=== PATIENT | male | born 1970 | race Caucasian/White ===

== ENCOUNTER 2019-06-14 11:41 | Inpatient (IN) ==
--- NOTE | 2019-06-14 11:51 | Emergency Department Note ---
Disposition Clinical Impression: Suicidal ideation Disposition: Still a Patient Condition: Good Referrals: NONE,PCP [Primary Care Provider] - Time of Disposition: 16:22 General Adult HPI - General Stated complaint: "pink slip" Time Seen by Provider: 06/14/19 11:42 Nursing Notes Reviewed: Yes Vital Signs Reviewed: Yes - Related Data Home Medications Medication Instructions Recorded Confirmed Temazepam [Restoril] 30 mg PO HS 07/01/18 11/10/18 Venlafaxine HCl 100 mg PO DAILY 07/01/18 11/10/18 Apixaban [Eliquis] 5 mg PO DAILY 11/10/18 11/10/18 Allergies Allergy/AdvReac Type Severity Reaction Status Date / Time codeine AdvReac Vomiting Verified 06/14/19 09:32 hydrocodone [From Vicodin] AdvReac Vomiting Verified 06/14/19 09:32 Past Medical History - Past Medical History Medical history: Reports: DVT, hyperlipidemia, hypertension, other Surgical history: Reports: herniorrhaphy Psychiatric history: Reports: anxiety, depression, prior suicide attempt - Social History Smoking Status: Current every day smoker Smokeless Tobacco Status: No Alcohol use: Reports: occasionally Drug use: Reports: IV Drug Use Course Vital Signs Temperature 98.1 F 06/14/19 11:44 Pulse Rate 132 06/14/19 11:44 Respiratory Rate 20 06/14/19 11:44 Blood Pressure 128/92 06/14/19 11:44 O2 Sat by Pulse Oximetry 96 06/14/19 11:44 Temperature 98.1 F 06/14/19 11:44 Pulse Rate 132 06/14/19 11:44 Respiratory Rate 20 06/14/19 11:44 Blood Pressure 128/92 06/14/19 11:44 O2 Sat by Pulse Oximetry 96 06/14/19 11:44 Oxygen Delivery Oxygen Delivery Room Air Medical Decision Making - MDM Narrative Medical decision making narrative: 1343 hrs., [facility] is evaluating the patient at this time. I also spoke with social group worker since he is homeless. 1505 hrs. [facility] has finished their evaluation they feel that he needs stool diagnosis placement so he will be a hold here in the ER until placement can be found. 1618 hrs.: [facility] has decided they are going to admit the patient here; 72 hour hold form is in place. - Lab Data Result diagrams: 06/14/19 11:54 06/14/19 11:54 Lab Results 06/14/19 06/14/19 06/14/19 Range/Units 11:54 11:54 11:54 WBC 8.7 (4.3-11.1) K/mcL RBC 5.21 (4.19-5.50) M/mcL Hgb 15.8 (12.9-16.9) g/dL Hct 46.6 (37.5-50.1) % MCV 89.4 (83.0-100.0) fL MCH 30.3 (28.0-33.3) pg MCHC 33.9 (31.6-35.5) g/dL RDW 13.8 (11.5-14.5) % Plt Count 242 (140-400) K/mcL MPV 10.8 (9.4-12.4) fL Immature Gran % 0.7 (0-4) % Seg Neutrophils % 68.8 % Lymphocytes % 19.6 % Monocytes % 9.6 % Eosinophils % 0.8 % Basophils % 0.5 % Neutrophils # 6.0 (1.6-8.9) K/mcL Lymphocytes # 1.7 (0.6-4.6) K/mcL Monocytes # 0.8 (0.0-1.3) K/mcL Eosinophils # 0.1 (0.0-0.6) K/mcL Basophils # 0.0 (0.0-0.2) K/mcL Sodium 141 (136-145) mEq/L Potassium 3.6 (3.5-5.1) mEq/L Chloride 105 (98-107) mEq/L Carbon Dioxide 26 (23-29) mEq/L BUN 16 (6-20) mg/dL Creatinine 0.86 (0.70-1.30) mg/dL Est GFR ( Amer) > 60 (> 60) Est GFR (Non-Af Amer) > 60 (> 60) BUN/Creatinine Ratio 19 (6-26) Glucose 94 (70-105) mg/dL Calculated Osmolality 293 (280-300) Calcium 9.7 (8.6-10.3) mg/dL Total Bilirubin 1.1 H (0.3-1.0) mg/dL Direct Bilirubin 0.2 (0.0-0.2) mg/dL Indirect Bilirubin 0.9 (0.0-1.2) mg/dL AST 55 H (13-39) Units/L ALT 40 (7-52) Units/L Alkaline Phosphatase 92 (34-104) Units/L Serum Total Protein 7.9 (6.4-8.9) g/dL Albumin 4.9 (3.5-5.7) g/dL Globulin 3.0 (2.4-3.5) g/dL Albumin/Globulin Ratio 1.6 (1.1-2.2) TSH 2.232 (0.340-5.600) mcIU/mL Urine Color (Yellow) Urine Clarity (Clear) Urine pH (5.0-8.0) pH Units Ur Specific [place] (1.010-1.025) Urine Protein (Neg-Trace) mg/dL Urine Glucose (UA) (Normal) mg/dL Urine Ketones (Negative) mg/dL Urine Blood (Negative) Urine Nitrite (Negative) Urine Bilirubin (Negative) Urine Urobilinogen (Normal) mg/dL Ur Leukocyte Esterase (Negative) Urine Microscopic RBC (0-3) per hpf Urine Microscopic WBC (0-3) per hpf Ur Squamous Epith Cells (None-Few) per lpf Urine Bacteria (None-Few) per hpf Hyaline Casts (None-Few) per lpf Salicylates < 2.5 L (15.0-30.0) mg/dL Urine Opiates Screen (Iivovx=650) ng/mL Ur Buprenorphine Scrn (Cutoff=5) ng/mL Acetaminophen < 10 L (10-20) mcg/mL Ur Barbiturates Screen (Ywgune=000) ng/mL Ur Phencyclidine Scrn (Cutoff=25) ng/mL Ur Amphetamines Screen (Xvkypt=8185) ng/mL U Benzodiazepines Scrn (Yfjcnr=693) ng/mL Urine Cocaine Screen (Cutoff= 300) ng/mL U Marijuana (THC) Screen (Cutoff = 50) ng/mL Ur Drug Screen Interp Ethyl Alcohol < 10 (Less than 10) mg/dL 06/14/19 06/14/19 Range/Units 12:38 12:38 WBC (4.3-11.1) K/mcL RBC (4.19-5.50) M/mcL Hgb (12.9-16.9) g/dL Hct (37.5-50.1) % MCV (83.0-100.0) fL MCH (28.0-33.3) pg MCHC (31.6-35.5) g/dL RDW (11.5-14.5) % Plt Count (140-400) K/mcL MPV (9.4-12.4) fL Immature Gran % (0-4) % Seg Neutrophils % % Lymphocytes % % Monocytes % % Eosinophils % % Basophils % % Neutrophils # (1.6-8.9) K/mcL Lymphocytes # (0.6-4.6) K/mcL Monocytes # (0.0-1.3) K/mcL Eosinophils # (0.0-0.6) K/mcL Basophils # (0.0-0.2) K/mcL Sodium (136-145) mEq/L Potassium (3.5-5.1) mEq/L Chloride (98-107) mEq/L Carbon Dioxide (23-29) mEq/L BUN (6-20) mg/dL Creatinine (0.70-1.30) mg/dL Est GFR ( Amer) (> 60) Est GFR (Non-Af Amer) (> 60) BUN/Creatinine Ratio (6-26) Glucose (70-105) mg/dL Calculated Osmolality (280-300) Calcium (8.6-10.3) mg/dL Total Bilirubin (0.3-1.0) mg/dL Direct Bilirubin (0.0-0.2) mg/dL Indirect Bilirubin (0.0-1.2) mg/dL AST (13-39) Units/L ALT (7-52) Units/L Alkaline Phosphatase (34-104) Units/L Serum Total Protein (6.4-8.9) g/dL Albumin (3.5-5.7) g/dL Globulin (2.4-3.5) g/dL Albumin/Globulin Ratio (1.1-2.2) TSH (0.340-5.600) mcIU/mL Urine Color Dark Yellow (Yellow) Urine Clarity Clear (Clear) Urine pH 5.5 (5.0-8.0) pH Units Ur Specific [place] > 1.030 H (1.010-1.025) Urine Protein 100 H (Neg-Trace) mg/dL Urine Glucose (UA) Normal (Normal) mg/dL Urine Ketones 15 H (Negative) mg/dL Urine Blood Trace H (Negative) Urine Nitrite Negative (Negative) Urine Bilirubin Small H (Negative) Urine Urobilinogen Normal (Normal) mg/dL Ur Leukocyte Esterase Negative (Negative) Urine Microscopic RBC 5-15 H (0-3) per hpf Urine Microscopic WBC 3-5 H (0-3) per hpf Ur Squamous Epith Cells Many H (None-Few) per lpf Urine Bacteria None Seen (None-Few) per hpf Hyaline Casts Few (None-Few) per lpf Salicylates (15.0-30.0) mg/dL Urine Opiates Screen Negative (Lmklrk=125) ng/mL Ur Buprenorphine Scrn Negative (Cutoff=5) ng/mL Acetaminophen (10-20) mcg/mL Ur Barbiturates Screen Negative (Enqgoy=523) ng/mL Ur Phencyclidine Scrn Negative (Cutoff=25) ng/mL Ur Amphetamines Screen Positive H (Xikiwg=1377) ng/mL U Benzodiazepines Scrn Negative (Zaodtx=032) ng/mL Urine Cocaine Screen Negative (Cutoff= 300) ng/mL U Marijuana (THC) Screen Negative (Cutoff = 50) ng/mL Ur Drug Screen Interp See Below Ethyl Alcohol (Less than 10) mg/dL Attestation Statement - Attestation Attestation: This documentation is done with the assistance of Dragon dictation. Despite efforts made to ensure accuracy, there may be inaccuracies in data control clerk or spelling and typographical errors. I examined this patient and my medical decision-making was reviewed with the Resident Physician. I agree with the documented findings, disposition and treatment plan as described except to the extent set forth below. Patient was seen and evaluated by Dr. Cuevas I agree with their evaluation and management plan, I supervised care the patient's stay. Patient is transferred from an outside hospital due to hallucinations with psychiatric features. He denies homicidal or suicidal ideations be tells us thought about suicide. He was recently homeless is been living in his car. They did not draw any blood at the other hospitals were out all blood here sitter then have one a see him. He is in agreement with plan. I reviewed the residents documentation and agree with the residents assessment and plan of care. I have personally had face to face time with the patient. (Brief History, Brief Exam, and MDM) I personally supervised and was present for the saldana/critical portions of the following procedures completed by the resident: EKG was interpreted by the resident under my supervision, I agree with their interpretation.
--- NOTE | 2019-06-14 11:54 | Emergency Department Note ---
Disposition Clinical Impression: Suicidal ideation Disposition: Still a Patient Condition: Good Referrals: NONE,PCP [Primary Care Provider] - Time of Disposition: 15:02 General Adult HPI - General Stated complaint: "pink slip" Time Seen by Provider: 06/14/19 11:42 Source: patient Mode of arrival: EMS Limitations: no limitations Nursing Notes Reviewed: Yes Vital Signs Reviewed: Yes - History of Present Illness HPI Narrative: 49-year-old male with a past medical history of hypertension and depression for which she was taking medication, however stopped taking all of his medications a proximally 1 week ago. He states that he has been having some relationship troubles with his , he states that they got a divorce but then had recently decided to reconcile. He then states that he in his decided that they should not be together, she kicked him out of the home, he has been living in his car. Patient states he has not eaten anything in 2 days, he has not had a shower, he states that about 4 or 5 months ago he tried heroin for the first time and his plan to end his life was to take an overdose of heroin. Patient also reports that he had used methamphetamine approximately 4-5 days ago, and reports that he has been seeing people who are not there over the last several days. Patient is upset that he feels like he looked like an idiot at work. Patient is tearful on initial examination, and will not make eye contact. - Related Data Home Medications Medication Instructions Recorded Confirmed Temazepam [Restoril] 30 mg PO HS 07/01/18 11/10/18 Venlafaxine HCl 100 mg PO DAILY 07/01/18 11/10/18 Apixaban [Eliquis] 5 mg PO DAILY 11/10/18 11/10/18 Allergies Allergy/AdvReac Type Severity Reaction Status Date / Time codeine AdvReac Vomiting Verified 06/14/19 09:32 hydrocodone [From Vicodin] AdvReac Vomiting Verified 06/14/19 09:32 Review of Systems: In addition to that documented in the HPI above, the additional ROS was obtained: Constitutional: Denies fevers or chills Eyes: Denies vision changes ENMT: Denies sore throat CV: Denies chest pain Resp: Denies SOB GI: Denies vomiting or diarrhea : Denies painful urination MSK: Denies recent trauma Skin: Denies new rashes Neuro: Denies new numbness or tingling or weakness Past Medical History - Past Medical History Attestation: Yes The following information was validated with the patient. Medical history: Reports: DVT, hyperlipidemia, hypertension, other Surgical history: Reports: herniorrhaphy Psychiatric history: Reports: anxiety, depression, prior suicide attempt - Social History Smoking Status: Current every day smoker Smokeless Tobacco Status: No Alcohol use: Reports: occasionally Drug use: Reports: IV Drug Use Physical Exam General:No acute distress. Tearful. Anxious. Well developed, well nourished. Disheveled, clothes are dirty. Head: atraumatic, normocephalic. ENT: No conjunctival injection, no scleral icterus. PERRLA. EOMI. Oropharynx non- erythematous. mucous membranes moist. Neuro: No focal deficits, no speech deficit, no facial droop, mentating well. BUE/BLE Str 5/5. Pulm: Lungs CTAB A/P. No wheezes, rales, ronchi. Cardio: RRR no m/r/g. Chest not tender to palpation. Abd: Soft, non-distended. Normoactive bowel sounds. Non-tender to palpation. No guarding. Non rigid. Extremities: Radial pulses 2+ christos, dorsalis pedis/posterior tibialis 2+ christos. No LE edema. No cyanosis, clubbing. Skin: warm, dry, intact. No rashes. Psych: Tearful. Flat affect. Answers questions appropriately. Cooperative with exam. Course Vital Signs Temperature 98.1 F 06/14/19 11:44 Pulse Rate 132 06/14/19 11:44 Respiratory Rate 06/14/19 11:44 Blood Pressure 128/92 06/14/19 11:44 O2 Sat by Pulse Oximetry 96 06/14/19 11:44 Temperature 98.1 F 06/14/19 11:44 Pulse Rate 132 06/14/19 11:44 Respiratory Rate 06/14/19 11:44 Blood Pressure 128/92 06/14/19 11:44 O2 Sat by Pulse Oximetry 96 06/14/19 11:44 Oxygen Delivery Oxygen Delivery Room Air Medical Decision Making - MDM Narrative Medical decision making narrative: 1156: Patient was transferred from an outside medical facility where they did not draw labs or tests his urine, patient will have his labs drawn, urine will be tested. Once that results [facility] will be called for bedside consult. [place] slip has been filled out and is placed on the chart. 1310: Diana from [facility] made aware of patient. 1500: Farhat from [facility] states that the patient will require dual diagnosis placement. They will call and find him a place. This may take several hours up to several days. Will place patient on psych hold and keep him 1 to 1 with sitter. Pt will be kept comfortable. - Medical Records Medical records reviewed: Yes I reviewed the patient's medical records. - Lab Data Lab results reviewed: Yes I reviewed the patient's lab results. Result diagrams: 06/14/19 11:54 06/14/19 11:54 Lab Results 06/14/19 06/14/19 06/14/19 Range/Units 11:54 11:54 11:54 WBC 8.7 (4.3-11.1) K/mcL RBC 5.21 (4.19-5.50) M/mcL Hgb 15.8 (12.9-16.9) g/dL Hct 46.6 (37.5-50.1) % MCV 89.4 (83.0-100.0) fL MCH 30.3 (28.0-33.3) pg MCHC 33.9 (31.6-35.5) g/dL RDW 13.8 (11.5-14.5) % Plt Count 242 (140-400) K/mcL MPV 10.8 (9.4-12.4) fL Immature Gran % 0.7 (0-4) % Seg Neutrophils % 68.8 % Lymphocytes % 19.6 % Monocytes % 9.6 % Eosinophils % 0.8 % Basophils % 0.5 % Neutrophils # 6.0 (1.6-8.9) K/mcL Lymphocytes # 1.7 (0.6-4.6) K/mcL Monocytes # 0.8 (0.0-1.3) K/mcL Eosinophils # 0.1 (0.0-0.6) K/mcL Basophils # 0.0 (0.0-0.2) K/mcL Sodium 141 (136-145) mEq/L Potassium 3.6 (3.5-5.1) mEq/L Chloride 105 (98-107) mEq/L Carbon Dioxide 26 (23-29) mEq/L BUN 16 (6-20) mg/dL Creatinine 0.86 (0.70-1.30) mg/dL Est GFR ( Amer) > 60 (> 60) Est GFR (Non-Af Amer) > 60 (> 60) BUN/Creatinine Ratio 19 (6-26) Glucose 94 (70-105) mg/dL Calculated Osmolality 293 (280-300) Calcium 9.7 (8.6-10.3) mg/dL Total Bilirubin 1.1 H (0.3-1.0) mg/dL Direct Bilirubin 0.2 (0.0-0.2) mg/dL Indirect Bilirubin 0.9 (0.0-1.2) mg/dL AST 55 H (13-39) Units/L ALT 40 (7-52) Units/L Alkaline Phosphatase 92 (34-104) Units/L Serum Total Protein 7.9 (6.4-8.9) g/dL Albumin 4.9 (3.5-5.7) g/dL Globulin 3.0 (2.4-3.5) g/dL Albumin/Globulin Ratio 1.6 (1.1-2.2) TSH 2.232 (0.340-5.600) mcIU/mL Urine Color (Yellow) Urine Clarity (Clear) Urine pH (5.0-8.0) pH Units Ur Specific [place] (1.010-1.025) Urine Protein (Neg-Trace) mg/dL Urine Glucose (UA) (Normal) mg/dL Urine Ketones (Negative) mg/dL Urine Blood (Negative) Urine Nitrite (Negative) Urine Bilirubin (Negative) Urine Urobilinogen (Normal) mg/dL Ur Leukocyte Esterase (Negative) Urine Microscopic RBC (0-3) per hpf Urine Microscopic WBC (0-3) per hpf Ur Squamous Epith Cells (None-Few) per lpf Urine Bacteria (None-Few) per hpf Hyaline Casts (None-Few) per lpf Salicylates < 2.5 L (15.0-30.0) mg/dL Urine Opiates Screen (Angdvk=397) ng/mL Ur Buprenorphine Scrn (Cutoff=5) ng/mL Acetaminophen < 10 L (10-20) mcg/mL Ur Barbiturates Screen (Dueadw=651) ng/mL Ur Phencyclidine Scrn (Cutoff=25) ng/mL Ur Amphetamines Screen (Tlvfhq=2807) ng/mL U Benzodiazepines Scrn (Rrduoi=100) ng/mL Urine Cocaine Screen (Cutoff= 300) ng/mL U Marijuana (THC) Screen (Cutoff = 50) ng/mL Ur Drug Screen Interp Ethyl Alcohol < 10 (Less than 10) mg/dL 06/14/19 06/14/19 Range/Units 12:38 12:38 WBC (4.3-11.1) K/mcL RBC (4.19-5.50) M/mcL Hgb (12.9-16.9) g/dL Hct (37.5-50.1) % MCV (83.0-100.0) fL MCH (28.0-33.3) pg MCHC (31.6-35.5) g/dL RDW (11.5-14.5) % Plt Count (140-400) K/mcL MPV (9.4-12.4) fL Immature Gran % (0-4) % Seg Neutrophils % % Lymphocytes % % Monocytes % % Eosinophils % % Basophils % % Neutrophils # (1.6-8.9) K/mcL Lymphocytes # (0.6-4.6) K/mcL Monocytes # (0.0-1.3) K/mcL Eosinophils # (0.0-0.6) K/mcL Basophils # (0.0-0.2) K/mcL Sodium (136-145) mEq/L Potassium (3.5-5.1) mEq/L Chloride (98-107) mEq/L Carbon Dioxide (23-29) mEq/L BUN (6-20) mg/dL Creatinine (0.70-1.30) mg/dL Est GFR ( Amer) (> 60) Est GFR (Non-Af Amer) (> 60) BUN/Creatinine Ratio (6-26) Glucose (70-105) mg/dL Calculated Osmolality (280-300) Calcium (8.6-10.3) mg/dL Total Bilirubin (0.3-1.0) mg/dL Direct Bilirubin (0.0-0.2) mg/dL Indirect Bilirubin (0.0-1.2) mg/dL AST (13-39) Units/L ALT (7-52) Units/L Alkaline Phosphatase (34-104) Units/L Serum Total Protein (6.4-8.9) g/dL Albumin (3.5-5.7) g/dL Globulin (2.4-3.5) g/dL Albumin/Globulin Ratio (1.1-2.2) TSH (0.340-5.600) mcIU/mL Urine Color Dark Yellow (Yellow) Urine Clarity Clear (Clear) Urine pH 5.5 (5.0-8.0) pH Units Ur Specific [place] > 1.030 H (1.010-1.025) Urine Protein 100 H (Neg-Trace) mg/dL Urine Glucose (UA) Normal (Normal) mg/dL Urine Ketones 15 H (Negative) mg/dL Urine Blood Trace H (Negative) Urine Nitrite Negative (Negative) Urine Bilirubin Small H (Negative) Urine Urobilinogen Normal (Normal) mg/dL Ur Leukocyte Esterase Negative (Negative) Urine Microscopic RBC 5-15 H (0-3) per hpf Urine Microscopic WBC 3-5 H (0-3) per hpf Ur Squamous Epith Cells Many H (None-Few) per lpf Urine Bacteria None Seen (None-Few) per hpf Hyaline Casts Few (None-Few) per lpf Salicylates (15.0-30.0) mg/dL Urine Opiates Screen Negative (Oknrlv=934) ng/mL Ur Buprenorphine Scrn Negative (Cutoff=5) ng/mL Acetaminophen (10-20) mcg/mL Ur Barbiturates Screen Negative (Vzuwwc=951) ng/mL Ur Phencyclidine Scrn Negative (Cutoff=25) ng/mL Ur Amphetamines Screen Positive H (Gelkar=6378) ng/mL U Benzodiazepines Scrn Negative (Thpdxg=431) ng/mL Urine Cocaine Screen Negative (Cutoff= 300) ng/mL U Marijuana (THC) Screen Negative (Cutoff = 50) ng/mL Ur Drug Screen Interp See Below Ethyl Alcohol (Less than 10) mg/dL
[2019-06-14 12:11] LABS: Basophils % 0.5 %; Eosinophils # 0.1 K/mcL (0.0-0.6); Eosinophils % 0.8 %; Hematocrit 46.6 % (37.5-50.1); Hemoglobin 15.8 g/dL (12.9-16.9); Immature Granulocytes % 0.7 % (0-4); Lymphocytes # 1.7 K/mcL (0.6-4.6); Lymphocytes % 19.6 %; Mean Corpuscular HGB Conc 33.9 g/dL (31.6-35.5); Mean Corpuscular Hemoglobin 30.3 pg (28.0-33.3); Mean Corpuscular Volume 89.4 fL (83.0-100.0); Mean Platelet Volume 10.8 fL (9.4-12.4); Monocytes # 0.8 K/mcL (0.0-1.3); Monocytes % 9.6 %; Platelet Count 242 K/mcL (140-400); Red Blood Count 5.21 M/mcL (4.19-5.50); Red Cell Distribution Width 13.8 % (11.5-14.5); Segmented Neutrophils % 68.8 %; White Blood Count 8.7 K/mcL (4.3-11.1)
[2019-06-14 12:30] LABS: Acetaminophen < 10 mcg/mL (10-20); BUN/Creatinine Ratio 19 (6-26); Blood Urea Nitrogen 16 mg/dL (6-20); Calcium 9.7 mg/dL (8.6-10.3); Carbon Dioxide 26 mEq/L (23-29); Chloride 105 mEq/L (98-107); Ethanol < 10 mg/dL (Less than 10); Glucose 94 mg/dL (70-105); Osmolality,Calculated 293 (280-300); Potassium 3.6 mEq/L (3.5-5.1); Salicylate < 2.5 mg/dL (15.0-30.0); Sodium 141 mEq/L (136-145); eGFR For African Americans > 60 (> 60); eGFR For Non-African Americans > 60 (> 60)
[2019-06-14 12:33] LABS: Albumin 4.9 g/dL (3.5-5.7); Albumin/Globulin Ratio 1.6 (1.1-2.2); Bilirubin,Direct 0.2 mg/dL (0.0-0.2); Bilirubin,Indirect 0.9 mg/dL (0.0-1.2); Bilirubin,Total 1.1 mg/dL (0.3-1.0); Total Protein 7.9 g/dL (6.4-8.9)
[2019-06-14 12:45] LABS: Thyroid Stimulating Hormone 2.232 mcIU/mL (0.340-5.600)
[2019-06-14 12:48] LABS: Bilirubin,Urine Small (Negative); Blood,Urine Trace (Negative); Clarity,Urine Clear (Clear); Color,Urine Dark Yellow (Yellow); Glucose,Urine (UA) Normal (Normal); Ketones,Urine 15 mg/dL (Negative); Leukocyte Esterase,Urine Negative (Negative); Nitrite,Urine Negative (Negative); PH,Urine 5.5 pH Units (5.0-8.0); Protein,Urine 100 mg/dL (Neg-Trace); Specific Gravity,Urine > 1.030 (1.010-1.025); Urobilinogen,Urine Normal (Normal)
[2019-06-14 12:50] LABS: Bacteria,Urine None Seen per hpf (None-Few); Hyaline Casts,Urine Few per lpf (None-Few); Squamous Epithelial Cell,Urine Many per lpf (None-Few)
[2019-06-14 13:06] LABS: Amphetamine Screen,Urine Positive ng/mL (Cutoff=1000); Barbiturate Screen,Urine Negative ng/mL (Cutoff=200); Benzodiazepines Screen,Urine Negative ng/mL (Cutoff=200); Cannabinoid Screen,Urine Negative ng/mL (Cutoff = 50); Cocaine Screen,Urine Negative ng/mL (Cutoff= 300); Opiate Screen,Urine Negative ng/mL (Cutoff=300); Phencyclidine Screen,Urine Negative ng/mL (Cutoff=25)
[2019-06-14] MEDS ORDERED: Mag Hydrox/Al Hydrox/Simeth 30 ML UDC PO PRN (16:50)
[2019-06-14] MEDS ORDERED: traZODone 50 MG TABLET PO PRN (16:50)
[2019-06-14] MEDS ORDERED: *HR* LORazepam 1 MG TABLET PO PRN (16:50)
[2019-06-14] MEDS ORDERED: Haloperidol Lactate 5 MG/ML VIAL IM PRN (16:50)
[2019-06-14] MEDS ORDERED: MOM Conc 10 ML UD.LIQ PO PRN (16:50)
[2019-06-14] MEDS ORDERED: *HR* LORazepam 2 MG/ML VIAL IM PRN (16:50)
[2019-06-14] MEDS: Nicotine 21 MG PATCH.TD24 TD SCH (22:48)
[2019-06-15] MEDS: Nicotine 21 MG PATCH.TD24 TD SCH (09:33)
--- NOTE | 2019-06-15 09:35 | Psychiatry History & Physical ---
Date of Encounter: 06/15/19 Time of Encounter: 09:35 History of Present Illness Medicare Admission Attestation: For traditional Medicare patients the provided hospital inpatient services are reasonable and necessary and in the case of services not specified as inpatient-only under 42 CFR 419.22 (n), that they are appropriately provided as inpatient services in accordance 42 CFR 412.3. For Critical Access Hospital the patient may reasonably be expected to be discharged or transferred to a hospital within 96 hours after admission to the Critical Access Hospital. History of Present Illness: Mr. Hoyt is a 49 year old male Past Med Surg Social Fam HX - Past Medical History Medical history: DVT, hyperlipidemia, hypertension, other - Past Surgical History Surgical History: herniorrhaphy - Social History Smoking Status: Current every day smoker Smokeless Tobacco Status: Yes Alcohol use: occasionally Drug use: IV Drug Use Medications & Allergies Dicyclomine [Bentyl] 10 mg PO TID 06/15/19 [History] Simvastatin [Zocor] 10 mg PO QPM 06/15/19 [History] Venlafaxine [Effexor] 75 mg PO DAILY 06/15/19 [History] Allergy/AdvReac Type Severity Reaction Status Date / Time codeine AdvReac Vomiting Verified 06/14/19 09:32 hydrocodone [From Vicodin] AdvReac Vomiting Verified 06/14/19 09:32 Exam - Constitutional Vitals: Temp Pulse Resp BP Pulse Ox 97.8 F 109 20 106/79 95 06/14/19 21:00 06/14/19 21:00 06/14/19 21:00 06/14/19 21:00 06/14/19 21:00 Results - Drug Levels and Toxicology Drug Levels and Toxicology: Drug Levels and Toxicity 06/14/19 06/14/19 11:54 12:38 Urine Opiates Screen Negative Acetaminophen < 10 L Ur Barbiturates Screen Negative Ur Phencyclidine Scrn Negative Ur Amphetamines Screen Positive H U Benzodiazepines Scrn Negative Urine Cocaine Screen Negative U Marijuana (THC) Screen Negative Ethyl Alcohol < 10 - Labs Labs: Laboratory Last Values WBC 8.7 K/mcL (4.3-11.1) 06/14/19 11:54 RBC 5.21 M/mcL (4.19-5.50) 06/14/19 11:54 Hgb 15.8 g/dL (12.9-16.9) 06/14/19 11:54 Hct 46.6 % (37.5-50.1) 06/14/19 11:54 MCV 89.4 fL (83.0-100.0) 06/14/19 11:54 MCH 30.3 pg (28.0-33.3) 06/14/19 11:54 MCHC 33.9 g/dL (31.6-35.5) 06/14/19 11:54 RDW 13.8 % (11.5-14.5) 06/14/19 11:54 Plt Count 242 K/mcL (140-400) 06/14/19 11:54 MPV 10.8 fL (9.4-12.4) 06/14/19 11:54 Immature Gran % 0.7 % (0-4) 06/14/19 11:54 Seg Neutrophils % 68.8 % 06/14/19 11:54 Lymphocytes % 19.6 % 06/14/19 11:54 Monocytes % 9.6 % 06/14/19 11:54 Eosinophils % 0.8 % 06/14/19 11:54 Basophils % 0.5 % 06/14/19 11:54 Neutrophils # 6.0 K/mcL (1.6-8.9) 06/14/19 11:54 Lymphocytes # 1.7 K/mcL (0.6-4.6) 06/14/19 11:54 Monocytes # 0.8 K/mcL (0.0-1.3) 06/14/19 11:54 Eosinophils # 0.1 K/mcL (0.0-0.6) 06/14/19 11:54 Basophils # 0.0 K/mcL (0.0-0.2) 06/14/19 11:54 Sodium 141 mEq/L (136-145) 06/14/19 11:54 Potassium 3.6 mEq/L (3.5-5.1) 06/14/19 11:54 Chloride 105 mEq/L (98-107) 06/14/19 11:54 Carbon Dioxide 26 mEq/L (23-29) 06/14/19 11:54 BUN 16 mg/dL (6-20) 06/14/19 11:54 Creatinine 0.86 mg/dL (0.70-1.30) 06/14/19 11:54 Est GFR ( Amer) > 60 (> 60) 06/14/19 11:54 Est GFR (Non-Af Amer) > 60 (> 60) 06/14/19 11:54 BUN/Creatinine Ratio 19 (6-26) 06/14/19 11:54 Glucose 94 mg/dL (70-105) 06/14/19 11:54 Calculated Osmolality 293 (280-300) 06/14/19 11:54 Calcium 9.7 mg/dL (8.6-10.3) 06/14/19 11:54 Total Bilirubin 1.1 mg/dL (0.3-1.0) H 06/14/19 11:54 Direct Bilirubin 0.2 mg/dL (0.0-0.2) 06/14/19 11:54 Indirect Bilirubin 0.9 mg/dL (0.0-1.2) 06/14/19 11:54 AST 55 Units/L (13-39) H 06/14/19 11:54 ALT 40 Units/L (7-52) 06/14/19 11:54 Alkaline Phosphatase 92 Units/L (34-104) 06/14/19 11:54 Serum Total Protein 7.9 g/dL (6.4-8.9) 06/14/19 11:54 Albumin 4.9 g/dL (3.5-5.7) 06/14/19 11:54 Globulin 3.0 g/dL (2.4-3.5) 06/14/19 11:54 Albumin/Globulin Ratio 1.6 (1.1-2.2) 06/14/19 11:54 TSH 2.232 mcIU/mL (0.340-5.600) 06/14/19 11:54 Urine Color Dark Yellow (Yellow) 06/14/19 12:38 Urine Clarity Clear (Clear) 06/14/19 12:38 Urine pH 5.5 pH Units (5.0-8.0) 06/14/19 12:38 Ur Specific [place] > 1.030 (1.010-1.025) H 06/14/19 12:38 Urine Protein 100 mg/dL (Neg-Trace) H 06/14/19 12:38 Urine Glucose (UA) Normal mg/dL (Normal) 06/14/19 12:38 Urine Ketones 15 mg/dL (Negative) H 06/14/19 12:38 Urine Blood Trace (Negative) H 06/14/19 12:38 Urine Nitrite Negative (Negative) 06/14/19 12:38 Urine Bilirubin Small (Negative) H 06/14/19 12:38 Urine Urobilinogen Normal mg/dL (Normal) 06/14/19 12:38 Ur Leukocyte Esterase Negative (Negative) 06/14/19 12:38 Urine Microscopic RBC 5-15 per hpf (0-3) H 06/14/19 12:38 Urine Microscopic WBC 3-5 per hpf (0-3) H 06/14/19 12:38 Ur Squamous Epith Cells Many per lpf (None-Few) H 06/14/19 12:38 Urine Bacteria None Seen per hpf (None-Few) 06/14/19 12:38 Hyaline Casts Few per lpf (None-Few) 06/14/19 12:38 Salicylates < 2.5 mg/dL (15.0-30.0) L 06/14/19 11:54 Urine Opiates Screen Negative ng/mL (Mlwaai=192) 06/14/19 12:38 Ur Buprenorphine Scrn Negative ng/mL (Cutoff=5) 06/14/19 12:38 Acetaminophen < 10 mcg/mL (10-20) L 06/14/19 11:54 Ur Barbiturates Screen Negative ng/mL (Rzzznf=424) 06/14/19 12:38 Ur Phencyclidine Scrn Negative ng/mL (Cutoff=25) 06/14/19 12:38 Ur Amphetamines Screen Positive ng/mL (Oohgsp=6161) H 06/14/19 12:38 U Benzodiazepines Scrn Negative ng/mL (Oukoet=411) 06/14/19 12:38 Urine Cocaine Screen Negative ng/mL (Cutoff= 300) 06/14/19 12:38 U Marijuana (THC) Screen Negative ng/mL (Cutoff = 50) 06/14/19 12:38 Ur Drug Screen Interp See Below 06/14/19 12:38 Ethyl Alcohol < 10 mg/dL (Less than 10) 06/14/19 11:54 - Attending Attestation I examined this patient and my medical decision-making was reviewed with the Resident Physician. I agree with the documented findings, disposition and treatment plan as described except to the extent set forth below. Patient was admitted with suicidal ideations and planned overdose on heroine. In fact he had overdosed on heroin about 5 months ago and was surprised when he woke up because he felt and he had taken enough to kill him. He did not seek treatment at that time. He is also been passively trying to kill himself by not taking his [place] thoughts currently unclear if he is out of the window that he needed to take this since it was a provoked DBT related to foot surgery. He is currently homeless and sleeping in his car and has had a tumultuous relationship with his . He was on Effexor but stopped that a few months ago and felt it did not help significantly. He required emergency medications last night due to agitation. He continues to endorse auditory and visual hallucinations and paranoia. We will start Cymbalta 30 mg by mouth every morning for depression and Seroquel 100 mg by mouth daily at bedtime for psychosis.
[2019-06-15] MEDS: hydrOXYzine pamoate 25 MG CAPSULE PO PRN (20:46)
[2019-06-15] MEDS: Acetaminophen 325 MG TABLET PO PRN (20:46)
[2019-06-16] MEDS: Nicotine 21 MG PATCH.TD24 TD SCH (09:08)
[2019-06-16] MEDS ORDERED: cloNIDine HCl 0.1 MG TABLET PO PRN (09:34)
--- NOTE | 2019-06-16 10:07 | Psychiatry Progress Note ---
Date of Encounter: 06/16/19 Time of Encounter: 09:20 Subjective Interval history: Patient continues to report sadness and depression with suicidal ideations the plan to overdose. He continues to dwell on his son's and feels that nothing is worth living for her after that. He is also very depressed about his divorce. He is tolerating the Cymbalta. He does report some withdrawal symptoms from the methamphetamines including shaking. He is willing to sign in as a voluntary patient. Review of Systems Psychiatric: Reports: abnormal sleep pattern, suicidal ideation, auditory hallucinations, difficulty concentrating, hopelessness. Denies: visual hallucinations Results - Vital Signs Vital Signs: Temp Pulse Resp BP Pulse Ox 97.8 F 101 18 105/70 98 06/16/19 09:00 06/16/19 09:00 06/16/19 09:00 06/16/19 09:00 06/16/19 09:00 Assessment and Plan (1) Major depression Current visit: Yes Status: Acute Plan: Continue hospitalization, Close observation, Suicide Precautions per unit protocol, Encourage participation in unit milieu, Group Therapy, Monitor sleep, Monitor appetite Additional Plan: Consider increase Cymbalta tomorrow. Encourage group attendance. Therapists working on linkage. Risks, benefits, side effects, alternatives discussed w/pt: Yes Patient agreeable to treatment: Yes Qualifiers: Major depression recurrence: recurrent Active/Remission status: currently active Psychotic features: without psychotic features Consult Discharge Plan - Plan Psychiatry Exam - Constitutional Vitals: Temp Pulse Resp BP Pulse Ox 97.8 F 101 18 105/70 98 06/16/19 09:00 06/16/19 09:00 06/16/19 09:00 06/16/19 09:00 06/16/19 09:00 General appearance: age & developmentally appropriate - Musculoskeletal Gait: slow Station: stooped Strength & Tone: normal for patient - Psychiatric Patient Orientation: Yes Person, Yes Time, Yes Place, Yes Circumstance Level of alertness: Alert Behavior: tearful, withdrawn Psychomotor activity: Slowed Eye Contact: Minimal Contact Mood Description: Depressed Patient description of mood: Sad Affect description: congruent with mood, blunted Speech Volume: Soft/Quiet Speech pattern: slowed Language & Vocabulary: consistent with education Thought Process: Logical Thought Content: Yes Suicidal ideation, No Paranoid delusion Perceptual Disturbances: Yes Auditory hallucinations, No Visual hallucinations Attention Span Ability: Capable of Focused Attention Memory Description: Grossly Intact Patient Reliability: Reliable Historian Fund of knowledge: Yes abstraction ability, Yes aware of current events Intelligence Estimate: Average Judgment: Limited Insight: Minimal
[2019-06-16] MEDS: Acetaminophen 325 MG TABLET PO PRN (17:39)
[2019-06-17] MEDS: Nicotine 21 MG PATCH.TD24 TD SCH (10:30)
--- NOTE | 2019-06-17 10:38 | Psychiatry Progress Note ---
Date of Encounter: 06/17/19 Time of Encounter: 08:40 Subjective Interval history: Patient says he is feeling a little better. He denies suicidal ideations today. He says he still sometimes wishes that he was not here would not wake up but does not have any active plans to hurt himself. He said he will likely stated his daughter which will be a good living situation. He is tolerating the Cymbalta. Review of Systems Psychiatric: Reports: abnormal sleep pattern, difficulty concentrating, hopelessness. Denies: visual hallucinations Results - Vital Signs Vital Signs: Temp Pulse Resp BP Pulse Ox 97.6 F 80 16 114/71 96 06/16/19 20:41 06/16/19 20:41 06/16/19 20:41 06/16/19 20:41 06/16/19 20:41 Assessment and Plan (1) Major depression Current visit: Yes Status: Acute Plan: Continue hospitalization, Close observation, Suicide Precautions per unit protocol, Encourage participation in unit milieu, Group Therapy, Monitor sleep, Monitor appetite Additional Plan: Increase Cymbalta to 60 mg by mouth every morning. Encourage group attendance. Will likely discharge tomorrow to his daughters. Risks, benefits, side effects, alternatives discussed w/pt: Yes Patient agreeable to treatment: Yes Qualifiers: Major depression recurrence: recurrent Active/Remission status: currently active Psychotic features: without psychotic features Consult Discharge Plan - Plan Referrals: [facility] [Outside] Michelle Barry, [employer] [Advanced Practice Nurse] - 06/25/19 12:00 pm (You have an appointment scheduled with this provider on Tuesday, June 25, 2019 at 12:00 PM. Please keep all of your healthcare providers informed of any changes in your medications, treatments or medical conditions. Please contact the office at the number above at least 24 hours in advance if you are unable to keep this appointment. ) Psychiatry Exam - Constitutional Vitals: Temp Pulse Resp BP Pulse Ox 97.6 F 80 16 114/71 96 06/16/19 20:41 06/16/19 20:41 06/16/19 20:41 06/16/19 20:41 06/16/19 20:41 General appearance: age & developmentally appropriate - Musculoskeletal Gait: slow Station: relaxed Strength & Tone: normal for patient - Psychiatric Patient Orientation: Yes Person, Yes Time, Yes Place, Yes Circumstance Level of alertness: Alert Behavior: calm Psychomotor activity: Normal Eye Contact: Minimal Contact Mood Description: Depressed Patient description of mood: Better Affect description: constricted Speech Volume: Normal Speech pattern: normal rate, normal rhythm, normal tone, fluent, spontaneous Language & Vocabulary: consistent with education Thought Process: Linear, Goal Oriented Thought Content: No Suicidal ideation, No Homicidal ideation, No Overt delusions Perceptual Disturbances: No Auditory hallucinations, No Visual hallucinations Attention Span Ability: Capable of Focused Attention Memory Description: Grossly Intact Patient Reliability: Reliable Historian Fund of knowledge: Yes abstraction ability, Yes aware of current events Intelligence Estimate: Average Judgment: Fair Insight: Partial
[2019-06-17] MEDS: hydrOXYzine pamoate 25 MG CAPSULE PO PRN (21:02)
[2019-06-18 09:15] VITALS: BP 115/75
[2019-06-18] MEDS: Nicotine 21 MG PATCH.TD24 TD SCH (09:26)
--- NOTE | 2019-06-18 10:31 | Discharge Summary ---
Date of Encounter: 06/18/19 Time of Encounter: 09:20 Diagnosis - Discharge Diagnosis (1) Major depression Status: Acute Qualifiers: Major depression recurrence: recurrent Active/Remission status: currently active Major depression episode severity: severe Psychotic features: without psychotic features Qualified Code(s): F33.2 - Major depressive disorder, recurrent severe without psychotic features Medications - Discharge Medications Prescriptions: DULoxetine [Cymbalta] 60 mg PO DAILY #30 capsule. Quetiapine Fumarate [Seroquel] 100 mg PO HS #15 tablet traZODone [TraZODone] 50 mg PO HS PRN #15 tablet PRN Reason: Insomnia hydrOXYzine pamoate [Vistaril] 25 mg PO TID PRN #30 capsule PRN Reason: Anxiety DULoxetine [Cymbalta] 60 mg PO DAILY #30 capsule. 06/18/19 [Rx] Quetiapine Fumarate [Seroquel] 100 mg PO HS #15 tablet 06/18/19 [Rx] hydrOXYzine pamoate [Vistaril] 25 mg PO TID PRN #30 capsule 06/18/19 [Rx] traZODone [TraZODone] 50 mg PO HS PRN #15 tablet 06/18/19 [Rx] Allergy/AdvReac Type Severity Reaction Status Date / Time codeine AdvReac Vomiting Verified 06/14/19 09:32 hydrocodone [From Vicodin] AdvReac Vomiting Verified 06/14/19 09:32 Results Procedures and tests throughout hospitalization: Completed Lab Orders Category Date Time Status Acetaminophen Stat Lab 06/14/19 11:54 Completed Basic Metabolic Panel Stat Lab 06/14/19 11:54 Completed Complete Blood Count [HEME] Stat Lab 06/14/19 11:54 Completed Drug Screen, Urine [UCHEM] Stat Lab 06/14/19 12:38 Completed Ethanol Stat Lab 06/14/19 11:54 Completed Hepatic Panel Stat Lab 06/14/19 11:54 Completed Salicylate Stat Lab 06/14/19 11:54 Completed Thyroid Stimulating Hormone Stat Lab 06/14/19 11:54 Completed Urinalysis reflex Microscopic [URIN] Stat Lab 06/14/19 12:38 Completed Provider Date of admission: 06/14/19 16:31 Primary care physician: PCP NONE Discharging clinician: Jacy Talavera Psychiatry Exam - Constitutional Vitals: Temp Pulse Resp BP Pulse Ox 97.7 F 97 20 115/75 81 06/18/19 09:00 06/18/19 09:00 06/18/19 09:00 06/18/19 09:00 06/18/19 09:00 General appearance: age & developmentally appropriate, well-groomed, well- nourished - Musculoskeletal Gait: normal Station: relaxed Strength & Tone: normal for patient - Psychiatric Patient Orientation: Yes Person, Yes Time, Yes Place, Yes Circumstance Level of alertness: Alert Behavior: calm, cooperative Psychomotor activity: Normal Eye Contact: Maintains Eye Contact Mood Description: Euthymic/stable Patient description of mood: Good Affect description: congruent with mood, full range Speech Volume: Normal Speech pattern: normal rate, normal rhythm, normal tone, fluent, spontaneous Language & Vocabulary: consistent with education Thought Process: Linear, Goal Oriented Thought Content: No Suicidal ideation, No Homicidal ideation, No Overt delusions Perceptual Disturbances: No Auditory hallucinations, No Visual hallucinations Attention Span Ability: Capable of Focused Attention Memory Description: Grossly Intact Patient Reliability: Reliable Historian Fund of knowledge: Yes abstraction ability, Yes aware of current events Intelligence Estimate: Average Judgment: Good Insight: Full Hospital Course Hospital course: Mr. Hoyt is a 49 year old male who was admitted for depression. He was started on Cymbalta for depression as well as Seroquel for auditory hallucinations and Vistaril as needed for anxiety and trazodone as needed for insomnia. Patient was educated of diagnosis and the risk-benefit side effects of this alternative treatment options and was monitored for responsiveness and side effects. Mood anxiety sleep and appetite interest improved as did future orientation. Self-harm thoughts subsided, thinking cleared, psychosis resolved, and mood stabilized. Patient was able to attend both individual and group therapy sessions as well as meet with the psychiatrist daily and urged to discuss any medication or treatment issues or other concerns. The patient was educated primarily by verbal means about their diagnosis and manifestations in their life. The option for treatment including group and individual therapy programming was offered to the patient in addition to the use of medications with all their potential risks, benefits, and side effects as well as the risks of not taking medication and non-adhereance were discussed with the patient at length. The patient was given the opportunity to ask questions and was noted to participate in the treatment in the planning process. The patient felt ready and eager to be discharged from the inpatient psychiatric unit to continue on with treatment as an outpatient. The patient agreed that is they were safe for this disposition. The patient was considered to be able to participate in informed consent and decision making with respect to medical, legal, and financial issues of the time of discharge. At the time of discharge the patient adamantly denied any concerns for lethality including suicidal or homicidal thoughts ideations or plans and was future oriented toward ongoing mental health care, medical follow-up and sobriety. Time spent discussing smoking cessation with patient: 3 to 10 minutes Does patient wish to continue nicotine replacement upon disc: No - Time Spent with Patient Total time spent providing and/or coordinating discharge services: 20 Less than 30 minutes Specific discharge activities: Interval history reviewed. Available labs reviewed . Psychotherapy provided. Patient had an opportunity to ask questions and address concerns. Patient was in agreement with the treatment plan. The risks benefits and side effects of medications were discussed with the patient, including alternatives and treatment. The patient was educated on the abstaining from any alcohol or illicit substances, following up with all scheduled appointments, and taking all medications as prescribed. Assessment and Plan - Patient/Caregiver Discharge Instructions Activity: resume usual activities as tolerated Diet: regular diet Additional Instructions: Continue current medications. Follow up with outpatient mental health. Encourage continued therapy in a group or individual setting. The patient was discharged to home. - Follow up Plan Follow up with: [facility] [place] [[facility]] Michelle Barry CNP [Advanced Practice Nurse] - 06/25/19 12:00 pm (You have an appointment scheduled with this provider on Tuesday, June 25, 2019 at 12:00 PM. Please keep all of your healthcare providers informed of any changes in your medications, treatments or medical conditions. Please contact the office at the number above at least 24 hours in advance if you are unable to keep this appointment. ) Functional capacity at discharge: independent ambulation Overall status at discharge: Stable Disposition: Home, Self-Care Quality - Multiple Antipsychotics Patient discharged on 2 or more antipsychotic medications: No Procedures - Procedures Procedures: Medication Management, Crisis Stabilization, Supportive Therapy, Group Therapy, Psychoeducational Therapy
== END 2019-06-18 19:07 | disposition home or self-care (01) | DRG 885 ==
LOC: EMEROOARM 11:41 → 1ANU 16:31
PROVIDERS: ADMIT Psychiatry & Neurology Psychiatry; ATTEND Psychiatry & Neurology Psychiatry

== ENCOUNTER 2019-06-30 15:08 | Inpatient (IN) ==
[2019-06-30] MEDS ORDERED: Mag Hydrox/Al Hydrox/Simeth 30 ML UDC PO PRN (17:01)
[2019-06-30] MEDS ORDERED: Haloperidol Lactate 5 MG/ML VIAL IM PRN (17:01)
[2019-06-30] MEDS ORDERED: *HR* LORazepam 1 MG TABLET PO PRN (17:01)
[2019-06-30] MEDS ORDERED: *HR* LORazepam 2 MG/ML VIAL IM PRN (17:01)
[2019-06-30] MEDS: traZODone 50 MG TABLET PO PRN (21:42)
[2019-06-30] MEDS: hydrOXYzine pamoate 25 MG CAPSULE PO PRN (21:42)
[2019-07-01] MEDS: Nicotine 2 MG GUM BC PRN ×3 (12:19→21:20)
[2019-07-01] MEDS: Ibuprofen 400 MG TABLET PO PRN (21:20)
[2019-07-02] MEDS: Nicotine 2 MG GUM BC PRN ×2 (12:16→17:36)
[2019-07-02] MEDS: Ibuprofen 400 MG TABLET PO PRN (21:38)
[2019-07-02] MEDS: traZODone 50 MG TABLET PO PRN (21:38)
[2019-07-03] MEDS: Nicotine 2 MG GUM BC PRN ×2 (14:22→17:12)
[2019-07-03] MEDS: Ibuprofen 400 MG TABLET PO PRN (21:11)
[2019-07-03] MEDS: ARIPiprazole 5 MG TABLET PO SCH (21:11)
[2019-07-03] MEDS: traZODone 50 MG TABLET PO PRN (21:11)
[2019-07-04] MEDS: Nicotine 2 MG GUM BC PRN ×2 (08:52→18:49)
[2019-07-04] MEDS: ARIPiprazole 5 MG TABLET PO SCH (21:10)
[2019-07-04] MEDS: hydrOXYzine pamoate 25 MG CAPSULE PO PRN (21:10)
[2019-07-04] MEDS: Ibuprofen 400 MG TABLET PO PRN (21:11)
[2019-07-04] MEDS: traZODone 50 MG TABLET PO PRN (21:11)
[2019-07-05] MEDS: Nicotine 2 MG GUM BC PRN ×2 (12:25→17:06)
[2019-07-05] MEDS: ARIPiprazole 5 MG TABLET PO SCH (21:09)
[2019-07-05] MEDS: MOM Conc 10 ML UD.LIQ PO PRN (21:09)
[2019-07-05] MEDS: Ibuprofen 400 MG TABLET PO PRN (21:10)
[2019-07-06] MEDS: Nicotine 2 MG GUM BC PRN ×2 (16:49→21:53)
[2019-07-06] MEDS: Ibuprofen 400 MG TABLET PO PRN (21:53)
[2019-07-06] MEDS: traZODone 50 MG TABLET PO PRN (21:53)
[2019-07-06] MEDS: hydrOXYzine pamoate 25 MG CAPSULE PO PRN (21:53)
[2019-07-06] MEDS: ARIPiprazole 5 MG TABLET PO SCH (21:53)
[2019-07-07] MEDS: MOM Conc 10 ML UD.LIQ PO PRN (12:18)
[2019-07-07] MEDS: Nicotine 2 MG GUM BC PRN ×2 (16:38→21:58)
[2019-07-07] MEDS: ARIPiprazole 5 MG TABLET PO SCH (21:22)
[2019-07-07] MEDS: traZODone 50 MG TABLET PO PRN (21:23)
[2019-07-07] MEDS: Ibuprofen 400 MG TABLET PO PRN (21:23)
[2019-07-08] MEDS: Nicotine 2 MG GUM BC PRN ×2 (09:27→19:15)
[2019-07-08] MEDS: traZODone 50 MG TABLET PO PRN (21:30)
[2019-07-08] MEDS: Ibuprofen 400 MG TABLET PO PRN (21:30)
[2019-07-08] MEDS: ARIPiprazole 5 MG TABLET PO SCH (21:30)
[2019-07-09] MEDS: Nicotine 2 MG GUM BC PRN ×2 (14:33→17:53)
[2019-07-09] MEDS: Ibuprofen 400 MG TABLET PO PRN (15:31)
[2019-07-09] MEDS: traZODone 50 MG TABLET PO PRN (21:37)
[2019-07-09] MEDS: ARIPiprazole 5 MG TABLET PO SCH (21:37)
[2019-07-10] MEDS: MOM Conc 10 ML UD.LIQ PO PRN (10:53)
[2019-07-10] MEDS ORDERED: Preparation H Ointment 30 GM TUBE TP PRN (13:04)
[2019-07-10] MEDS: Nicotine 2 MG GUM BC PRN ×3 (13:18→21:56)
[2019-07-10] MEDS: hydrOXYzine pamoate 25 MG CAPSULE PO PRN (21:53)
[2019-07-10] MEDS: traZODone 50 MG TABLET PO PRN (21:53)
[2019-07-10] MEDS: Ibuprofen 400 MG TABLET PO PRN (21:54)
[2019-07-10] MEDS: ARIPiprazole 5 MG TABLET PO SCH (21:57)
[2019-07-11] MEDS: Nicotine 2 MG GUM BC PRN ×3 (11:59→21:27)
[2019-07-11] MEDS: traZODone 50 MG TABLET PO PRN (21:25)
[2019-07-11] MEDS: hydrOXYzine pamoate 25 MG CAPSULE PO PRN (21:26)
[2019-07-11] MEDS: ARIPiprazole 5 MG TABLET PO SCH (21:26)
[2019-07-11] MEDS: Ibuprofen 400 MG TABLET PO PRN (21:26)
[2019-07-12] MEDS: Ibuprofen 400 MG TABLET PO PRN (09:45)
[2019-07-12] MEDS: Nicotine 2 MG GUM BC PRN ×3 (09:45→21:08)
[2019-07-12] MEDS: ARIPiprazole 5 MG TABLET PO SCH (21:07)
[2019-07-12] MEDS: hydrOXYzine pamoate 25 MG CAPSULE PO PRN (21:08)
[2019-07-12] MEDS: traZODone 50 MG TABLET PO SCH (21:08)
[2019-07-13] MEDS: Ibuprofen 400 MG TABLET PO PRN ×2 (09:36→21:43)
[2019-07-13] MEDS: Nicotine 2 MG GUM BC PRN ×2 (12:37→21:43)
[2019-07-13] MEDS: hydrOXYzine pamoate 25 MG CAPSULE PO PRN (19:04)
[2019-07-13] MEDS: ARIPiprazole 5 MG TABLET PO SCH (21:41)
[2019-07-13] MEDS: traZODone 50 MG TABLET PO SCH (21:41)
[2019-07-14] MEDS: Fluticasone Propionate Nasal 50 MCG/SPRAY BOTTLE NS SCH (09:30)
[2019-07-14] MEDS: Nicotine 2 MG GUM BC PRN ×2 (11:56→21:14)
[2019-07-14] MEDS: traZODone 50 MG TABLET PO SCH (21:13)
[2019-07-14] MEDS: Ibuprofen 400 MG TABLET PO PRN (21:14)
[2019-07-14] MEDS: ARIPiprazole 5 MG TABLET PO SCH (21:14)
[2019-07-15] MEDS: Fluticasone Propionate Nasal 50 MCG/SPRAY BOTTLE NS SCH (08:22)
[2019-07-15] MEDS: Nicotine 2 MG GUM BC PRN ×3 (09:23→18:55)
[2019-07-15] MEDS: Ibuprofen 400 MG TABLET PO PRN ×2 (15:52→21:54)
[2019-07-15] MEDS: traZODone 50 MG TABLET PO SCH (21:55)
[2019-07-15] MEDS: ARIPiprazole 5 MG TABLET PO SCH (21:55)
[2019-07-16] MEDS: Fluticasone Propionate Nasal 50 MCG/SPRAY BOTTLE NS SCH (09:06)
[2019-07-16] MEDS: Nicotine 2 MG GUM BC PRN ×2 (09:08→21:17)
[2019-07-16] MEDS ORDERED: FLU Vac QV 19-20 (6Month+)/PF 0.5 ML SYRINGE IM ONE (10:45)
[2019-07-16] MEDS: ARIPiprazole 5 MG TABLET PO SCH (21:17)
[2019-07-16] MEDS: traZODone 50 MG TABLET PO SCH (21:17)
[2019-07-16] MEDS: hydrOXYzine pamoate 25 MG CAPSULE PO PRN (21:18)
[2019-07-16] MEDS: Ibuprofen 400 MG TABLET PO PRN (21:18)
[2019-07-17] MEDS: Nicotine 2 MG GUM BC PRN ×4 (08:50→21:32)
[2019-07-17] MEDS: Fluticasone Propionate Nasal 50 MCG/SPRAY BOTTLE NS SCH (08:50)
[2019-07-17] MEDS ORDERED: Gabapentin 100 MG CAPSULE PO ONE (13:54)
[2019-07-17] MEDS: traZODone 50 MG TABLET PO SCH (21:33)
[2019-07-17] MEDS: ARIPiprazole 5 MG TABLET PO SCH (21:34)
[2019-07-17] MEDS: Ibuprofen 400 MG TABLET PO PRN (21:35)
[2019-07-17] MEDS: hydrOXYzine pamoate 25 MG CAPSULE PO PRN (21:40)
[2019-07-18] MEDS: hydrOXYzine pamoate 25 MG CAPSULE PO PRN ×2 (02:43→21:25)
[2019-07-18] MEDS: Nicotine 2 MG GUM BC PRN ×3 (03:33→20:40)
[2019-07-18] MEDS: Ibuprofen 400 MG TABLET PO PRN ×2 (09:35→21:26)
[2019-07-18] MEDS: Fluticasone Propionate Nasal 50 MCG/SPRAY BOTTLE NS SCH (09:36)
[2019-07-18] MEDS ORDERED: Gabapentin 100 MG CAPSULE PO ONE (11:33)
[2019-07-18] MEDS: ARIPiprazole 5 MG TABLET PO SCH (21:24)
[2019-07-18] MEDS: traZODone 50 MG TABLET PO SCH (21:25)
[2019-07-19] MEDS: Nicotine 2 MG GUM BC PRN ×2 (08:19→21:34)
[2019-07-19] MEDS: Fluticasone Propionate Nasal 50 MCG/SPRAY BOTTLE NS SCH (08:42)
[2019-07-19 17:35] LABS: Estimated Average Glucose 108 mg/dl
[2019-07-19 17:45] LABS: Chol/HDL Ratio 7.7 (0-4.9); Cholesterol 269 mg/dL (< 200); HDL Cholesterol 35 mg/dL (40-59); Triglycerides 725 mg/dL (< 150)
[2019-07-19] MEDS: traZODone 50 MG TABLET PO SCH (21:34)
[2019-07-19] MEDS: Ibuprofen 400 MG TABLET PO PRN (21:34)
[2019-07-19] MEDS: ARIPiprazole 5 MG TABLET PO SCH (21:34)
[2019-07-19] MEDS: hydrOXYzine pamoate 25 MG CAPSULE PO PRN (21:35)
[2019-07-20] MEDS: Fluticasone Propionate Nasal 50 MCG/SPRAY BOTTLE NS SCH (08:39)
[2019-07-20] MEDS: Ibuprofen 400 MG TABLET PO PRN (11:59)
[2019-07-20] MEDS: Nicotine 2 MG GUM BC PRN (13:53)
[2019-07-20] MEDS: hydrOXYzine pamoate 25 MG CAPSULE PO PRN (14:55)
[2019-07-20] MEDS: ARIPiprazole 5 MG TABLET PO SCH (21:44)
[2019-07-20] MEDS: traZODone 50 MG TABLET PO SCH (21:45)
[2019-07-21] MEDS: Fluticasone Propionate Nasal 50 MCG/SPRAY BOTTLE NS SCH (08:52)
[2019-07-21 10:37] VITALS: BP 118/77
== END 2019-07-21 12:05 | disposition home or self-care (01) | DRG 885 ==
LOC: EMEROOARM 15:08 → 1ANU 16:59 → SUATTDRO 16:59 → 1ANU 17:52
PROVIDERS: ADMIT Psychiatry & Neurology Psychiatry; ATTEND Psychiatry & Neurology Psychiatry

== ENCOUNTER 2020-05-16 03:13 | Inpatient (IN) ==
[2020-05-16 04:24] LABS: Basophils % 0.5 %; Eosinophils % 0.1 %; Hematocrit 38.5 % (37.5-50.1); Hemoglobin 13.7 g/dL (12.9-16.9); Immature Granulocytes % 1.6 % (0-4); Lymphocytes # 1.8 K/mcL (0.6-4.6); Lymphocytes % 21.1 %; Mean Corpuscular HGB Conc 35.6 g/dL (31.6-35.5); Mean Corpuscular Hemoglobin 30.3 pg (28.0-33.3); Mean Corpuscular Volume 85.2 fL (83.0-100.0); Mean Platelet Volume 10.8 fL (9.4-12.4); Monocytes # 0.7 K/mcL (0.0-1.3); Monocytes % 7.5 %; Platelet Count 244 K/mcL (140-400); Red Blood Count 4.52 M/mcL (4.19-5.50); Red Cell Distribution Width 13.8 % (11.5-14.5); Segmented Neutrophils % 69.2 %; White Blood Count 8.6 K/mcL (4.3-11.1)
[2020-05-16 04:44] LABS: BUN/Creatinine Ratio 17 (6-26); Blood Urea Nitrogen 16 mg/dL (6-20); Calcium 9.3 mg/dL (8.6-10.3); Carbon Dioxide 25 mEq/L (23-29); Chloride 106 mEq/L (98-107); Glucose 129 mg/dL (70-105); Osmolality,Calculated 293 (280-300); Potassium 3.5 mEq/L (3.5-5.1); Sodium 140 mEq/L (136-145); eGFR For African Americans > 60 (> 60); eGFR For Non-African Americans > 60 (> 60)
[2020-05-16] MEDS ORDERED: Aspirin 81 MG TAB.CHEW PO ONE (04:48)
[2020-05-16 04:50] LABS: Troponin I 0.05 ng/mL (< 0.04)
[2020-05-16] MEDS ORDERED: *HR* Heparin 5,000 UNIT/ML VIAL IVP ONE ×2 (04:52→05:30)
[2020-05-16] MEDS ORDERED: *HR* Heparin 5,000 UNIT/ML VIAL IVP PRN ×2 (04:52)
[2020-05-16] MEDS ORDERED: Heparin 25,000UNIT/250ML 1/2NS 25,000 UNIT/250 ML IV.SOLN IVC SCH (05:00)
[2020-05-16] MEDS ORDERED: *HR* Ticagrelor 90 MG TABLET PO ONE (05:09)
[2020-05-16] MEDS ORDERED: 0.9 % Sodium Chloride 1,000 ML ONE (05:10)
[2020-05-16] MEDS ORDERED: *HR* Ticagrelor 90 MG TABLET ONE (05:10)
[2020-05-16] MEDS: Heparin 25,000UNIT/250ML 1/2NS 25,000 UNIT/250 ML IV.SOLN IVC SCH (05:35)
[2020-05-16] MEDS ORDERED: Heparin 1,000 UNITS/500 mL 500 ML ONE (05:38)
[2020-05-16] MEDS ORDERED: *HR* Heparin 10,000 UNIT/10 ML VIAL ONE (05:38)
[2020-05-16] MEDS ORDERED: ISOVUE-370 200 ML INFUS..BTL ONE (05:38)
[2020-05-16] MEDS ORDERED: Nitroglycerin 1,000 MCG/10 ML VIAL IV ONE (05:38)
[2020-05-16] MEDS ORDERED: 0.9 % Sodium Chloride 2,000 ML ONE (05:38)
[2020-05-16] MEDS ORDERED: *HR* FentaNYL (PF) 100 MCG/2 ML VIAL ONE (05:58)
[2020-05-16] MEDS ORDERED: Ondansetron 4 MG/2 ML VIAL IVP PRN (05:58)
[2020-05-16] MEDS ORDERED: Acetaminophen 325 MG TABLET PO PRN (05:58)
[2020-05-16] MEDS ORDERED: *HR* Midazolam HCl 2 MG/2 ML VIAL ONE (05:58)
[2020-05-16] MEDS ORDERED: Naloxone 0.4 MG/ML INJ IVP PRN (05:58)
[2020-05-16] MEDS: Aspirin 81 MG TAB.CHEW PO SCH (08:16)
[2020-05-16] MEDS ORDERED: *HR* Ticagrelor 90 MG TABLET PO SCH (09:00)
[2020-05-16] MEDS: lisinopriL 20 MG TABLET PO SCH (10:13)
[2020-05-16 10:21] LABS: Heparin anti-factor XA UFH 0.44 IU/mL (0.30-0.70); Prothrombin Time 11.8 Seconds (9.4-12.1)
[2020-05-16] MEDS ORDERED: Sodium Bicarbonate 150 MEQ in D5% in Water 1,000 ML IVC SCH (10:30)
[2020-05-16] MEDS: Isosorbide MONOnitrate (24 HR) 30 MG TAB.ER.24H PO SCH (14:08)
[2020-05-16] MEDS: Nicotine 21 MG PATCH.TD24 TD SCH (14:08)
[2020-05-16] MEDS ORDERED: Perflutren Lipid Microsphere 1.3 ML in 0.9 % Sodium Chloride 8.7 ML IVP PRN (14:10)
[2020-05-16] MEDS: *HR* Ticagrelor 90 MG TABLET PO SCH (16:50)
[2020-05-17] MEDS: Heparin 25,000UNIT/250ML 1/2NS 25,000 UNIT/250 ML IV.SOLN IVC SCH (02:12)
[2020-05-17 04:49] LABS: Hematocrit 35.4 % (37.5-50.1); Hemoglobin 12.4 g/dL (12.9-16.9); Mean Corpuscular Hemoglobin 30.5 pg (28.0-33.3); Mean Corpuscular Volume 87.2 fL (83.0-100.0); Platelet Count 182 K/mcL (140-400); Red Blood Count 4.06 M/mcL (4.19-5.50); Red Cell Distribution Width 14.4 % (11.5-14.5); White Blood Count 8.1 K/mcL (4.3-11.1)
[2020-05-17 05:08] LABS: Alanine Aminotransferase 28 Units/L (7-52); Albumin 3.7 g/dL (3.5-5.7); Albumin/Globulin Ratio 1.8 (1.1-2.2); Alkaline Phosphatase 47 Units/L (34-104); Aspartate Amino Transferase 55 Units/L (13-39); BUN/Creatinine Ratio 19 (6-26); Bilirubin,Total 0.6 mg/dL (0.3-1.0); Blood Urea Nitrogen 13 mg/dL (6-20); Calcium 8.6 mg/dL (8.6-10.3); Carbon Dioxide 25 mEq/L (23-29); Chloride 106 mEq/L (98-107); Chol/HDL Ratio 4.6 (0-4.9); Cholesterol 178 mg/dL (< 200); Globulin 2.1 g/dL (2.4-3.5); Glucose 88 mg/dL (70-105); HDL Cholesterol 39 mg/dL (40-59); LDL Cholesterol,Calculated 89 mg/dL (< 100); Magnesium 1.7 mg/dL (1.6-2.6); Osmolality,Calculated 284 (280-300); Phosphorous 3.6 mg/dL (2.7-4.5); Potassium 3.5 mEq/L (3.5-5.1); Sodium 137 mEq/L (136-145); Total Protein 5.8 g/dL (6.4-8.9); Triglycerides 248 mg/dL (< 150); eGFR For African Americans > 60 (> 60); eGFR For Non-African Americans > 60 (> 60)
[2020-05-17] MEDS: *HR* Ticagrelor 90 MG TABLET PO SCH ×2 (05:33→17:21)
[2020-05-17] MEDS: Aspirin 81 MG TAB.CHEW PO SCH (07:59)
[2020-05-17] MEDS: lisinopriL 20 MG TABLET PO SCH (08:00)
[2020-05-17] MEDS: Isosorbide MONOnitrate (24 HR) 30 MG TAB.ER.24H PO SCH (08:00)
[2020-05-17] MEDS: Nicotine 21 MG PATCH.TD24 TD SCH (08:00)
[2020-05-17] MEDS ORDERED: lisinopriL 20 MG TABLET PO SCH (09:00)
[2020-05-17] MEDS ORDERED: Heparin 1,000 UNITS/500 mL 500 ML ONE (11:38)
[2020-05-17] MEDS ORDERED: *HR* Heparin 10,000 UNIT/10 ML VIAL ONE (11:38)
[2020-05-17] MEDS ORDERED: ISOVUE-370 200 ML INFUS..BTL ONE ×2 (11:38→12:25)
[2020-05-17] MEDS ORDERED: 0.9 % Sodium Chloride 2,000 ML ONE (11:38)
[2020-05-17] MEDS ORDERED: Nitroglycerin 1,000 MCG/10 ML VIAL IV ONE (11:39)
[2020-05-17] MEDS ORDERED: *HR* FentaNYL (PF) 100 MCG/2 ML VIAL ONE (11:48)
[2020-05-17] MEDS ORDERED: *HR* Midazolam HCl 2 MG/2 ML VIAL ONE (11:48)
[2020-05-17] MEDS ORDERED: Naloxone 0.4 MG/ML INJ IVP PRN (16:46)
[2020-05-17] MEDS ORDERED: Acetaminophen 325 MG TABLET PO PRN (16:46)
[2020-05-17] MEDS ORDERED: Ondansetron 4 MG/2 ML VIAL IVP PRN (16:46)
[2020-05-18] MEDS: *HR* Ticagrelor 90 MG TABLET PO SCH (05:17)
[2020-05-18] MEDS ORDERED: lisinopriL 5 MG TABLET PO SCH ×2 (09:00)
[2020-05-18] MEDS ORDERED: Aspirin 81 MG TAB.CHEW PO SCH (09:00)
[2020-05-18] MEDS ORDERED: lisinopriL 20 MG TABLET PO SCH (09:00)
[2020-05-18] MEDS ORDERED: Isosorbide MONOnitrate (24 HR) 30 MG TAB.ER.24H PO SCH (09:00)
[2020-05-18] MEDS ORDERED: Nicotine 21 MG PATCH.TD24 TD SCH (09:00)
[2020-05-18 10:35] VITALS: BP 107/67
[2020-05-19] MEDS ORDERED: Metoprolol XL (24 HR) Succ 25 MG TAB.ER.24H PO SCH (09:00)
== END 2020-05-18 12:17 | disposition home or self-care (01) | DRG 174 ==
LOC: EMEROOARM 03:13 → ICNU 05:47 → INTOOBSV 05:52
PROVIDERS: ADMIT Internal Medicine Cardiovascular Disease; ATTEND Student in an Organized Health Care Education/Training Program

== ENCOUNTER 2020-05-25 11:19 | Observation (INO) ==
[2020-05-25 12:02] LABS: Basophils % 0.4 %; Eosinophils # 0.1 K/mcL (0.0-0.6); Eosinophils % 1.3 %; Hematocrit 43.7 % (37.5-50.1); Hemoglobin 14.6 g/dL (12.9-16.9); Immature Granulocytes % 0.9 % (0-4); Mean Corpuscular HGB Conc 33.4 g/dL (31.6-35.5); Mean Corpuscular Hemoglobin 28.9 pg (28.0-33.3); Mean Corpuscular Volume 86.5 fL (83.0-100.0); Mean Platelet Volume 10.9 fL (9.4-12.4); Monocytes # 0.7 K/mcL (0.0-1.3); Monocytes % 9.2 %; Platelet Count 220 K/mcL (140-400); Red Blood Count 5.05 M/mcL (4.19-5.50); Red Cell Distribution Width 13.7 % (11.5-14.5); Segmented Neutrophils % 63.2 %; White Blood Count 7.9 K/mcL (4.3-11.1)
[2020-05-25 12:31] LABS: Troponin I 0.07 ng/mL (< 0.04)
[2020-05-25 12:35] LABS: BUN/Creatinine Ratio 13 (6-26); Blood Urea Nitrogen 10 mg/dL (6-20); Calcium 9.9 mg/dL (8.6-10.3); Carbon Dioxide 25 mEq/L (23-29); Chloride 106 mEq/L (98-107); Glucose 89 mg/dL (70-105); Osmolality,Calculated 285 (280-300); Sodium 138 mEq/L (136-145); eGFR For African Americans > 60 (> 60); eGFR For Non-African Americans > 60 (> 60)
[2020-05-25] MEDS ORDERED: Aspirin 325 MG TABLET PO ONE ×2 (12:35→12:57)
[2020-05-25] MEDS ORDERED: Aspirin 81 MG TAB.CHEW PO ONE (12:45)
[2020-05-25] MEDS ORDERED: Nitroglycerin 0.4 MG TAB.SUBL SL ONE (12:47)
[2020-05-25] MEDS ORDERED: Naloxone 0.4 MG/ML INJ IVP PRN (12:49)
[2020-05-25] MEDS ORDERED: Acetaminophen 325 MG TABLET PO PRN (12:49)
[2020-05-25] MEDS ORDERED: Ondansetron 4 MG/2 ML VIAL IVP PRN (12:49)
[2020-05-25] MEDS ORDERED: hydrOXYzine pamoate 25 MG CAPSULE PO PRN (13:53)
[2020-05-25] MEDS: *HR* Ticagrelor 90 MG TABLET PO SCH (18:11)
[2020-05-26] MEDS: *HR* Ticagrelor 90 MG TABLET PO SCH (05:17)
[2020-05-26 05:35] LABS: Hemoglobin 13.2 g/dL (12.9-16.9); Mean Corpuscular HGB Conc 33.8 g/dL (31.6-35.5); Mean Corpuscular Hemoglobin 30.3 pg (28.0-33.3); Mean Corpuscular Volume 89.4 fL (83.0-100.0); Mean Platelet Volume 11.3 fL (9.4-12.4); Platelet Count 210 K/mcL (140-400); Red Blood Count 4.36 M/mcL (4.19-5.50); White Blood Count 7.3 K/mcL (4.3-11.1)
[2020-05-26 06:02] LABS: BUN/Creatinine Ratio 16 (6-26); Blood Urea Nitrogen 13 mg/dL (6-20); Calcium 9.1 mg/dL (8.6-10.3); Chloride 105 mEq/L (98-107); Glucose 93 mg/dL (70-105); Magnesium 1.8 mg/dL (1.6-2.6); Osmolality,Calculated 286 (280-300); Potassium 4.1 mEq/L (3.5-5.1); Sodium 138 mEq/L (136-145); eGFR For African Americans > 60 (> 60); eGFR For Non-African Americans > 60 (> 60)
[2020-05-26 06:29] LABS: Carbon Dioxide 25 mEq/L (23-29)
[2020-05-26] MEDS ORDERED: Aspirin 81 MG TAB.CHEW PO SCH (09:00)
[2020-05-26] MEDS ORDERED: Metoprolol XL (24 HR) Succ 25 MG TAB.ER.24H PO SCH (09:00)
[2020-05-26] MEDS ORDERED: lisinopriL 5 MG TABLET PO SCH (09:00)
[2020-05-26 11:06] VITALS: BP 91/53
== END 2020-05-26 13:57 | disposition home or self-care (01) ==
LOC: 3BNU 11:19 → EMEROOARM 11:19 → 3BNU 15:19
PROVIDERS: ADMIT Internal Medicine; ATTEND Internal Medicine

== ENCOUNTER 2021-04-12 06:54 | Inpatient (IN) ==
[2021-04-12] MEDS ORDERED: 0.9 % Sodium Chloride 1,000 ML IVC ONE (07:18)
[2021-04-12 07:35] LABS: Hematocrit 42.7 % (37.5-50.1); Hemoglobin 14.7 g/dL (12.9-16.9); Mean Corpuscular HGB Conc 34.4 g/dL (31.6-35.5); Mean Corpuscular Hemoglobin 29.3 pg (28.0-33.3); Mean Corpuscular Volume 85.1 fL (83.0-100.0); Mean Platelet Volume 10.6 fL (9.4-12.4); Platelet Count 216 K/mcL (140-400); Red Blood Count 5.02 M/mcL (4.19-5.50); Red Cell Distribution Width 13.2 % (11.5-14.5); White Blood Count 9.1 K/mcL (4.3-11.1)
[2021-04-12 07:58] LABS: Alanine Aminotransferase 34 Units/L (7-52); Albumin 4.5 g/dL (3.5-5.7); Albumin/Globulin Ratio 1.5 (1.1-2.2); Alkaline Phosphatase 132 Units/L (34-104); Aspartate Amino Transferase 22 Units/L (13-39); BUN/Creatinine Ratio 7 (6-26); Bilirubin,Direct 0.1 mg/dL (0.0-0.2); Bilirubin,Indirect 0.6 mg/dL (0.0-1.0); Bilirubin,Total 0.7 mg/dL (0.3-1.0); Blood Urea Nitrogen 31 mg/dL (6-20); Calcium 9.2 mg/dL (8.6-10.3); Carbon Dioxide 23 mEq/L (23-29); Chloride 102 mEq/L (98-107); Globulin 3.1 g/dL (2.4-3.5); Glucose 122 mg/dL (70-105); Lipase 37 Units/L (11-82); Osmolality,Calculated 292 (280-300); Potassium 3.6 mEq/L (3.5-5.1); Sodium 137 mEq/L (136-145); Total Protein 7.6 g/dL (6.4-8.9); Troponin I < 0.03 ng/mL (< 0.04); eGFR For African Americans 18 (> 60); eGFR For Non-African Americans 15 (> 60)
[2021-04-12 08:51] LABS: Bilirubin,Urine Small (Negative); Blood,Urine Negative (Negative); Clarity,Urine Cloudy (Clear); Color,Urine Yellow (Yellow); Glucose,Urine (UA) Normal (Normal); Ketones,Urine Trace mg/dL (Negative); Leukocyte Esterase,Urine Negative (Negative); Nitrite,Urine Negative (Negative); PH,Urine 5.5 pH Units (5.0-8.0); Protein,Urine >=300 mg/dL (Neg-Trace); Specific Gravity,Urine >= 1.030 (1.010-1.025); Urobilinogen,Urine Normal (Normal)
[2021-04-12 09:07] LABS: RBC,Urine 0-3 per hpf (0-3); WBC,Urine 0-3 per hpf (0-3)
[2021-04-12 09:08] LABS: Amorphous Sediment,Urine Moderate per hpf (None-Few); Bacteria,Urine Few per hpf (None-Few); Squamous Epithelial Cell,Urine Few per hpf (None-Few)
[2021-04-12 10:03] LABS: Amphetamine Screen,Urine Negative ng/mL (Cutoff=1000); Barbiturate Screen,Urine Negative ng/mL (Cutoff=200); Benzodiazepines Screen,Urine Negative ng/mL (Cutoff=200); Cannabinoid Screen,Urine Negative ng/mL (Cutoff = 50); Cocaine Screen,Urine Negative ng/mL (Cutoff= 300); Opiate Screen,Urine Negative ng/mL (Cutoff=300); Phencyclidine Screen,Urine Negative ng/mL (Cutoff=25)
[2021-04-12] MEDS ORDERED: Ondansetron 4 MG/2 ML VIAL IVP PRN (10:50)
[2021-04-12] MEDS ORDERED: Melatonin 3 MG TABLET PO PRN (10:50)
[2021-04-12] MEDS ORDERED: hydrOXYzine pamoate 25 MG CAPSULE PO PRN (10:53)
[2021-04-12] MEDS ORDERED: Nicotine 2 MG GUM BC PRN (11:03)
[2021-04-12 11:14] LABS: Creatinine,Urine 555 mg/dL; Sodium, Urine 33.8 mEq/L
[2021-04-12 11:54] LABS: Chlamydia Trachomatis DNA Ur NOT DETECTED (Not Detect)
[2021-04-12] MEDS: 0.9 % Sodium Chloride 1,000 ML IVC SCH ×2 (13:30→21:30)
[2021-04-12] MEDS: Nicotine 14 MG PATCH.TD24 TD SCH (13:31)
[2021-04-12] MEDS: Metoprolol XL (24 HR) Succ 25 MG TAB.ER.24H PO SCH (16:26)
[2021-04-12] MEDS: *HR* Heparin 5,000 UNIT/ML VIAL SQ SCH (16:27)
[2021-04-12] MEDS: Acetaminophen 325 MG TABLET PO PRN (16:28)
[2021-04-12 22:04] LABS: Calcium 8.2 mg/dL (8.6-10.3); Potassium 3.7 mEq/L (3.5-5.1)
[2021-04-12] MEDS: QUEtiapine Fumarate 100 MG TABLET PO SCH (22:21)
[2021-04-13] MEDS: 0.9 % Sodium Chloride 1,000 ML IVC SCH (00:38)
[2021-04-13] MEDS: *HR* Heparin 5,000 UNIT/ML VIAL SQ SCH ×2 (05:59→16:19)
[2021-04-13 07:01] LABS: INR 1.1; Prothrombin Time 12.8 Seconds (9.4-12.1)
[2021-04-13 07:05] LABS: Calcium 8.3 mg/dL (8.6-10.3); Magnesium 1.8 mg/dL (1.6-2.6); Phosphorous 4.8 mg/dL (2.7-4.5); Potassium 4.2 mEq/L (3.5-5.1)
[2021-04-13] MEDS: Nicotine 14 MG PATCH.TD24 TD SCH (07:11)
[2021-04-13] MEDS: Metoprolol XL (24 HR) Succ 25 MG TAB.ER.24H PO SCH (07:12)
[2021-04-13] MEDS: Aspirin 81 MG TAB.CHEW PO SCH (07:12)
[2021-04-13] MEDS: Acetaminophen 325 MG TABLET PO PRN ×2 (07:12→14:40)
[2021-04-13] MEDS ORDERED: Ringers Solution, Lactated 500 ML IVC SCH (08:30)
[2021-04-13] MEDS ORDERED: Ringers Solution, Lactated 1,000 ML IVC SCH ×2 (08:30→16:15)
[2021-04-13] MEDS ORDERED: Metoprolol XL (24 HR) Succ 25 MG TAB.ER.24H PO SCH (09:00)
[2021-04-13] MEDS: *HR* HYDROcodone/Acet 5/325 mg TABLET PO PRN (10:19)
[2021-04-13] MEDS ORDERED: Ipratropium/Albuterol Neb 3 ML IH PRN (11:29)
[2021-04-13 13:28] LABS: Uric Acid 10.1 mg/dL (2.3-7.6)
[2021-04-13] MEDS: QUEtiapine Fumarate 100 MG TABLET PO SCH (21:09)
[2021-04-14 03:47] LABS: Calcium 8.5 mg/dL (8.6-10.3); Potassium 4.3 mEq/L (3.5-5.1)
[2021-04-14] MEDS: *HR* Heparin 5,000 UNIT/ML VIAL SQ SCH (05:34)
[2021-04-14 07:23] VITALS: BP 117/72
[2021-04-14] MEDS: *HR* HYDROcodone/Acet 5/325 mg TABLET PO PRN (07:24)
[2021-04-14] MEDS: Aspirin 81 MG TAB.CHEW PO SCH (07:24)
[2021-04-14] MEDS: Nicotine 14 MG PATCH.TD24 TD SCH (07:24)
[2021-04-14] MEDS: Metoprolol XL (24 HR) Succ 25 MG TAB.ER.24H PO SCH (07:24)
[2021-04-14] MEDS ORDERED: Loratadine 10 MG TABLET PO SCH (09:00)
[2021-04-14 09:10] LABS: Protein/Creatinine Ratio,Urine 0.11 mg/mg (0.00-0.20)
[2021-04-15 11:50] LABS: ANA IgG by ELISA NONE DETECTED (None Detected)
[2021-04-16 06:30] LABS: Serine Protease-3 Antibody 2 AU/mL (0-19)
== END 2021-04-14 11:49 | disposition home or self-care (01) | DRG 683 ==
LOC: EMEROOARM 06:54 → 2ANU 06:54 → SUATTDRO 12:17 → 2ANU 12:53
PROVIDERS: ADMIT Internal Medicine; ATTEND Internal Medicine